=== PATIENT | male | born 1955 | race Native Hawaiian/Other Pacific Islander ===

== ENCOUNTER 2018-11-16 17:40 | Observation (INO) | payer OTHER ==
[~2018-11-16] VITALS: Ht 182.9 cm; Wt 126.3 kg
[2018-11-16] VITALS (7 sets, daily range): BP systolic 143–192; BP diastolic 78–91; TEMP 97.7–98.5; Ht 182.9 cm; Wt 126.3 kg
[2018-11-16] MEDS ORDERED: ASPIR-8181 MG PO (17:50)
[2018-11-16 18:11] LABS: PLATELET COUNT 210 K/uL (142-355)
[2018-11-16 18:19] LABS: POTASSIUM 4.2 mmol/L (3.6-5.2); SODIUM 140 mmol/L (136-145)
[2018-11-17 04:00] VITALS: BP 115/72; TEMP 98.4
[2018-11-17] MEDS ORDERED: COATED ASPIRIN325 MG PO (05:10)
[2018-11-17] MEDS ORDERED: TRAZ50TA36 PO (05:10)
[2018-11-17] MEDS ORDERED: CLOP75TA2 PO (05:10)
[2018-11-17] MEDS ORDERED: LORA1TAB17 PO (05:10)
[2018-11-17] MEDS ORDERED: TAMS0.4C PO (05:10)
[2018-11-17] MEDS ORDERED: TYLENOL325 MG PO (05:10)
== END 2018-11-17 06:05 | disposition short-term general hospital (02) ==
LOC: ED 17:40 → MED/SURG 19:47
PROVIDERS: ADMIT Emergency Medicine
DX: R07.89 Other chest pain (principal); I25.10 Atherosclerotic heart disease of native coronary artery without angina pectoris; R94.31 Abnormal electrocardiogram [ECG] [EKG]
CPT/HCPCS: 80053; 81000; 82550; 82553; 84484; 85027; 85379; 93005; 99220; 99284; G0378

== ENCOUNTER 2018-11-17 06:10 | Outpatient (CLI) | payer OTHER ==
[~2018-11-17 06:10] MED LIST: ASPIR-8181 MG PO; CLOP75TA2 PO; COATED ASPIRIN325 MG PO; LORA1TAB17 PO; TAMS0.4C PO; TRAZ50TA36 PO; TYLENOL325 MG PO
== END 2018-11-17 06:49 | disposition short-term general hospital (02) ==
LOC: AMB 06:10
DX: R07.89 Other chest pain (principal); R79.89 Other specified abnormal findings of blood chemistry
CPT/HCPCS: A0425; A0427

== ENCOUNTER 2019-03-05 13:02 | Outpatient (CLI) | payer OTHER | END 2019-03-06 05:53 | disposition home or self-care (01) | LOC: RAD 13:02 | DX: M25.521 Pain in right elbow (principal) ==

== ENCOUNTER 2019-03-16 13:43 | Outpatient (CLI) | payer OTHER | END 2019-03-16 23:48 | disposition home or self-care (01) | LOC: MRI 13:43 | DX: M25.521 Pain in right elbow (principal) ==

== ENCOUNTER 2019-06-19 14:25 | Outpatient (CLI) | payer OTHER | END 2019-06-19 19:36 | disposition home or self-care (01) | LOC: RAD 14:25 | DX: M79.671 Pain in right foot (principal) ==

== ENCOUNTER 2020-12-15 06:43 | Emergency (ER) | payer OTHER ==
[~2020-12-15] VITALS: Ht 182.9 cm; Wt 126.1 kg
[2020-12-15 07:05] LABS: PLATELET COUNT 175 K/uL (142-355)
[2020-12-15 07:14] LABS: POTASSIUM 4.2 mmol/L (3.6-5.2); SODIUM 140 mmol/L (136-145)
[2020-12-15 08:18] LABS: PARTIAL THROMBOPLASTIN TIME 19.8 SECONDS (24.5-33.6)
[2020-12-15 13:12] VITALS: BP 118/66
== END 2020-12-15 13:12 | disposition still patient (30) ==
LOC: ED 06:43
PROVIDERS: Hospitalist
DX: I48.20 Chronic atrial fibrillation, unspecified (principal); I25.10 Atherosclerotic heart disease of native coronary artery without angina pectoris; Z03.818 Encounter for observation for suspected exposure to other biological agents ruled out
CPT/HCPCS: 36415; 80053; 80320; 82550; 83880; 84484; 85027; 85610; 85730; 87635; 93005; 96360; 96361; 96365; 96375; 96376; 99284; J3490; U0003

== ENCOUNTER 2021-01-12 14:20 | Outpatient (CLI) | payer OTHER | END 2021-01-12 21:51 | disposition home or self-care (01) | LOC: RAD 14:20 | PROVIDERS: ATTEND Neurological Surgery | DX: M54.12 Radiculopathy, cervical region (principal) ==

== ENCOUNTER 2021-02-12 09:41 | Outpatient (CLI) | payer OTHER | END 2021-02-12 19:44 | disposition home or self-care (01) | LOC: MRI 09:41 | PROVIDERS: ATTEND Neurological Surgery | DX: M54.12 Radiculopathy, cervical region (principal) ==

== ENCOUNTER 2021-03-12 10:52 | Outpatient (CLI) | payer OTHER | END 2021-03-12 20:33 | disposition home or self-care (01) | LOC: RAD 10:52 | PROVIDERS: ATTEND Physician Assistant | DX: M25.561 Pain in right knee (principal); M25.562 Pain in left knee ==

== ENCOUNTER 2022-01-12 12:47 | Outpatient (CLI) | payer OTHER | END 2022-01-12 18:53 | disposition home or self-care (01) | LOC: RAD 12:47 | PROVIDERS: ATTEND Orthopaedic Surgery | DX: M25.521 Pain in right elbow (principal) ==

== ENCOUNTER 2022-12-30 08:11 | Outpatient (CLI) | payer OTHER | END 2022-12-30 17:00 | disposition home or self-care (01) | LOC: RAD 08:11 | PROVIDERS: ATTEND Physician Assistant | DX: M54.59 Other low back pain (principal) ==